=== PATIENT | female | born 1995 | race Caucasian/White ===

== ENCOUNTER 2017-03-10 10:57 | Emergency (ER) | payer BC, SELFPAY ==
--- NOTE | ~2017-03-10 | ER ---
PATIENT'S NAME: ALTA [facility] AGE: 21 Y [address] ROOM: [place] [id number] LOCATION: [facility] ADMIT DATE: 03/10/2017 ER/Outpatient Report DISCHARGE DATE: 03/10/2017 FAMILY PHYSICIAN: PHYSICIAN, NO ATTENDING PHYSICIAN: Soco Dacosta ARRIVAL TIME: 10:57. ENCOUNTER TIME: 11:07. SUBJECTIVE/CHIEF COMPLAINT: Right lower quadrant abdominal pain. HISTORY OF PRESENT ILLNESS: The patient is a pleasant, well-appearing 21-year-old female complaining of right lower quadrant abdominal pain. She describes it as sharp and non- radiating, and aggravated by palpation. Also, she notes some rebound tenderness as well. It started about an hour ago. She feels it is worsening and general right now. Last menstrual period was on 03/03/2017. Not taking control, but has not had any sexual activity. Home treatment with Tylenol, DayQuil, and Robitussin, with no relief. PERTINENT REVIEW OF SYSTEMS: All systems were reviewed by me and are negative unless otherwise stated in the HPI. The patient denies nausea, vomiting, diarrhea, or constipation. PAST MEDICAL HISTORY: Negative. PAST SURGICAL HISTORY: Negative. MEDICATIONS: No medications. ALLERGIES: NO KNOWN DRUG ALLERGIES. SOCIAL HISTORY: Non-smoker. PATIENT'S NAME: ALTA [facility] AGE: 21 Y [address] ROOM: [place] [id number] LOCATION: [facility] ADMIT DATE: 03/10/2017 ER/Outpatient Report DISCHARGE DATE: 03/10/2017 FAMILY PHYSICIAN: PHYSICIAN, CORA ATTENDING PHYSICIAN: Soco Dacosta OBJECTIVE: VITAL SIGNS: Height is 5 feet 2 inches and weight is 61.5 kg. Blood pressure was 119/76, pulse was 66, respirations were 15 breaths per minute, temperature was 98.6 degrees Fahrenheit taken tympanically, and SpO2 was 96% on room air. Pain is 6/10. GENERAL: The patient is well developed and well nourished. She is calm. Alert and oriented to person, place, and time. HEENT: Head is atraumatic and normocephalic. Eyes, conjunctivae were clear. No discharge. Pupils are PERRLA bilaterally. EOMFI bilaterally. No nystagmus. NECK: Supple and without lymphadenopathy. Trachea is midline. No JVD. LUNGS: Clear to auscultation bilaterally. No wheezes, crackles, rhonchi, or stridor. Normal respiratory effort. HEART: Regular rate and rhythm. No S3, S4, or extra sounds. ABDOMEN: Tender in the right lower quadrant. Rebound tenderness over McBurney point. She had drawer positive and obturator positive. Romel's was positive on the right as well. Positive bowel sounds x4. Normal percussion. Soft and nondistended. No masses. LABORATORY DATA: Urine hCG was negative. CBC showed white blood cells of 5.6, red blood cells of 4.26, hemoglobin of 12.2, hematocrit of 37.2, MCV of 87.3, MCH of 28.6, MCHC of 32.8, RDW of 14.0, platelets of 206, MPV of 8.6, RBC of 0, neutrophil number of 3.1, neutrophil percent of 55.3, lymph number of 1.6, lymph percent of 28.3, mono number of 0.6, mono percent of 10.6, eosinophil number of 0.3, eosinophil percent of 4.7, baso number of 0.1, baso percent of 0.9, Ig number , and Ig percent of 0.2. CMS with sodium of 144, potassium of 3.7, chloride of 111, CO2 of 23, anion gap of 13.7, glucose of 96, calcium of 8.4, BUN of 16, creatinine of 0.7, total protein of 6.4, albumin of 3.4, globulin of 3.0, A/G ratio of 1.1, total bilirubin of 0.2, alkaline phosphatase of 75, AST of 13, ALT of 12, estimated GFR of over 60, amylase of 47, and lipase of 161. Discussed all the above lab results with the patient and her mother. RADIOLOGY: CT scan of abdomen and pelvis with contrast indicates a punctate 1-mm stone at the right ureterovesical junction series 2 image 96 produces a minor right hydronephrosis with delayed right nephrogram. No stones or hydronephrosis on the left. Appendix was normal. Negative adnexa. Abdomen and pelvis were otherwise normal. Discussed results with the patient. ASSESSMENT: Kidney stone/nephrolithiasis. PLAN: Supportive management of kidney stone. Push fluids. We will provide medicine PATIENT'S NAME: CASSI [facility] AGE: 21 Y [address] ROOM: [place], [place] [address] LOCATION: [facility] ADMIT DATE: 03/10/2017 ER/Outpatient Report DISCHARGE DATE: 03/10/2017 FAMILY PHYSICIAN: PHYSICIAN, NO ATTENDING PHYSICIAN: Soco Dacosta for pain. Advised that this may take several more days before discomfort resolves. Guard for signs of urinary burning, frequency, or urgency. Follow up with regular physician in the next 7 days or sooner should any concerns arise. Take all medications as prescribed. Discussed med risks, side-effects, and benefits in detail. Should not be driving while taking the sedating pain medication. Give plenty of rest and liquids. Take Tylenol or ibuprofen as directed as first line pain control for fever or discomfort, and the [place] as available for breakthrough pain. Return to the Emergency Department or primary care provider if symptoms persist or worsen. JEAN PIERRE FUENTES PA-C FOR SOCO DACOSTA MD SMR/modl /[id number] d: 03/11/17 0025 t: 03/16/17 1217, OUTPATIENT REPORT
[2017-03-10 11:35] LABS: BASOPHIL # 0.1 K/uL (0.0-0.2); BASOPHIL % 0.9 %; EOSINOPHIL # 0.3 K/uL (0.0-0.5); EOSINOPHIL % 4.7 %; HEMATOCRIT 37.2 % (33.0-46.0); HEMOGLOBIN 12.2 g/dL (11.0-15.0); IMMATURE GRANULOCYTE % 0.2 %; LYMPHOCYTE # 1.6 K/uL (0.8-4.0); LYMPHOCYTE % 28.3 %; MCH 28.6 pg (27.0-34.0); MCHC 32.8 gm/dL (32.0-36.5); MCV 87.3 fl (83.0-98.0); MONOCYTE # 0.6 K/uL (0.0-1.0); MONOCYTE % 10.6 %; MPV 8.6 fl (9.4-12.4); NEUTROPHIL # (ANC) 3.1 K/uL (1.8-7.8); NEUTROPHIL % 55.3 %; NRBC % 0 /100WBC (0-0.00); PLATELET COUNT 206 K/uL (150-450); RBC 4.26 M/uL (3.50-5.00); WBC 5.6 K/uL (4.0-11.0)
[2017-03-10 11:51] LABS: ALBUMIN 3.4 gm/dL (3.5-5.0); ALK PHOS 75 IU/L (33-138); ALT 12 IU/L (12-78); ANION GAP 13.7 (10.0-19.0); AST 13 IU/L (10-40); BLOOD UREA NITROGEN 16 mg/dL (6-24); CALCIUM 8.4 mg/dL (8.5-10.5); CHLORIDE 111 mMol/L (96-110); CO2 23 mMol/L (22-32); CREATININE 0.7 mg/dL (0.5-1.1); ESTIMATED GFR (MDRD EQUATION) > 60; POTASSIUM 3.7 mMol/L (3.7-5.1); SODIUM 144 mMol/L (135-145); TOTAL PROTEIN 6.4 g/dL (6.0-8.4)
[2017-03-10 11:53] LABS: TOTAL BILIRUBIN 0.2 mg/dL (0.0-1.5)
== END 2017-03-10 13:28 | disposition disaster alternative care site (69) ==
LOC: GMED 10:57
PROVIDERS: Physician Assistant
DX: N20.0 Calculus of kidney (principal)
CPT/HCPCS: J1885; J2405